=== PATIENT | female | born 1955 | race Caucasian/White ===

== ENCOUNTER 2018-12-20 08:41 | Emergency (ER) | payer MEDICARE ==
--- NOTE | 2018-12-20 09:32 | CT ---
CT HEAD WITHOUT IV CONTRAST COMPARISON: 07/16/2018 HISTORY: Injury after falling and hitting head this morning. TECHNIQUE: Axial CT imaging at 5 mm intervals from vertex through skull base without contrast FINDINGS: There is no evidence of an acute infarction, hemorrhage, mass effect, or midline shift. The ventricul ar system is normal in size, shape, and position. Visualized paranasal sinuses are clear. Osseous structures appear intact.No calvarial fracture is seen. IMPRESSION: 1. No acute intracranial abnormality demonstrated.CT head is stable compared to study on 07/16/2018
--- NOTE | 2018-12-20 09:54 | CT ---
CT CERVICAL SPINE WITHOUT CONTRAST: Date: 12/20/18 INDICATION: 63-year-old female status post fall with neck injury. COMPARISON: Prior CT of the cervical spine dated 07/16/18. FINDINGS: There is advanced multilevel disc degenerative disease from C3-4 through C7-T1. There is some straigh tening of the normal cervical lordosis. Osseous central canal is preserved. No acute fracture is evid ent. Craniocervical junction is normal appearing. Lung apices are clear. Prevertebral soft tissues ar e normal appearing. IMPRESSION: 1. No acute fracture or subluxation demonstrated. 2. Moderate multilevel spondylosis of the cervical spine. POS: OFF
== END 2018-12-20 09:55 | disposition home or self-care (01) ==
LOC: MADERS 08:41
DX: S06.0X0A Concussion without loss of consciousness, initial encounter (principal); S00.83XA Contusion of other part of head, initial encounter; E03.9 Hypothyroidism, unspecified; I10 Essential (primary) hypertension; E66.9 Obesity, unspecified; F41.9 Anxiety disorder, unspecified; F31.9 Bipolar disorder, unspecified; F20.9 Schizophrenia, unspecified; Z79.899 Other long term (current) drug therapy; W18.30XA Fall on same level, unspecified, initial encounter
CPT/HCPCS: 70450; 72125